=== PATIENT | female | born 1970 | race Two or more races ===

== ENCOUNTER 2019-10-01 16:04 | Emergency (ER) | payer OTHER ==
[2019-10-01 16:37] VITALS: BMI 28.8
--- NOTE | 2019-10-01 17:18 | PDOC ---
History of Present Illness - General Chief Complaint: Pain Stated Complaint: ABD PAIN X 7 DAYS History Source: Patient, Family - History of Present Illness Initial Comments: 10/01/19 17:02 Patient is a 49 year old female with no pmhx c/o epigastric pain x 2 year. States she was seen in the ED 1 year ago for this same symptoms but then went back to [place]. She is now returning with symptoms of epigastric burning pain 8 /10, worse with eating or drinking, so has not been eating or drinking x 1 month. For the past 3 days she has been having dizziness - spinning, hand getting numb, weakness and last 2 days has been having diarrhea. Saw Dr. Oviedo for the same symptoms, blood work was done which showed low Vit D, B12, iron and referred her to GI Dr. Corbett who she will 10/04/19. She is planning to go back to [place] soon. PMD: Dr. Oviedo PMHX: As above PSOCHX: Visiting with her daughters ALL: NKDA GENERAL/CONSTITUTIONAL: [No fever or chills. No weakness. No weight change.] HEAD, EYES, EARS, NOSE AND THROAT: [No change in vision. No ear pain or discharge. No sore throat.] CARDIOVASCULAR: [No chest pain or shortness of breath.] RESPIRATORY: [No cough, wheezing, or hemoptysis.] GASTROINTESTINAL: [(+)nausea, vomiting, diarrhea (-)constipation. No rectal bleeding.] GENITOURINARY: [No dysuria, frequency, or change in urination.] MUSCULOSKELETAL: [No joint or muscle swelling or pain. No neck or back pain.] SKIN AND BREASTS: [No rash or easy bruising.] NEUROLOGIC: [No headache, vertigo, loss of consciousness, or loss of sensation.] PSYCHIATRIC: [No depression or anxiety.] ENDOCRINE: [No increased thirst. No abnormal weight change.] HEMATOLOGIC/LYMPHATIC: [No anemia, easy bleeding, or history of blood clots.] ALLERGIC/IMMUNOLOGIC: [No hives or skin allergy. No latex allergy.] GENERAL: [The patient is awake, alert, and fully oriented, in no acute distress. ] HEAD: [Normal with no signs of trauma.] EYES: [Pupils equal, round and reactive to light, extraocular movements intact, sclera anicteric, conjunctiva clear.] ENT: [Ears normal, nares patent, oropharynx clear without exudates. Moist mucous membranes.] NECK: [Normal range of motion, supple without lymphadenopathy, JVD, or masses.] LUNGS: [Breath sounds equal, clear to auscultation bilaterally. No wheezes, and no crackles.] HEART: [Regular rate and rhythm, normal S1 and S2 without murmur, rub.] ABDOMEN: [Soft, (+)tenderness epigastrium, normoactive bowel sounds. No guarding, no rebound. No masses.] EXTREMITIES: [Normal range of motion, no edema. No clubbing or cyanosis. No cords, erythema, or tenderness.] NEUROLOGICAL: [Cranial nerves II through XII grossly intact. Normal speech, normal gait.] PSYCH: [Normal mood, normal affect.] SKIN: [Warm, Dry, normal turgor, no rashes or lesions noted.] Past History - Past Medical History Allergies/Adverse Reactions: Allergies Allergy/AdvReac Type Severity Reaction Status Date / Time No Known Allergies Allergy Verified 10/01/19 16:35 Home Medications: Ambulatory Orders metFORMIN HCL [Metformin HCl] 500 mg PO BID #60 tablet 11/19/15 Glycerin [Suppository] 1 each RC Q3D PRN #10 supp.rect 12/14/15 Na Phos,M-B/Na Phos,Di-Ba [Fleet Enema] 133 ml RC ONCE #1 enema 12/14/15 Polyethylene Glycol 3350 [Miralax 255 gm Btl -] 17 gm PO DAILY #1 bottle Cephalexin [Keflex] 500 mg PO BID #10 capsule 10/01/19 Sucralfate Oral Suspension [Carafate *Oral Susp*] 1 gm PO QID 10 Days #400 ml COPD: No Diabetes: Yes - Psycho Social/Smoking Cessation Hx Smoking History: Never smoked Have you smoked in the past 12 months: No Number of Cigarettes Smoked Daily: 0 Information on smoking cessation initiated: No Hx Alcohol Use: No Drug/Substance Use Hx: No Substance Use Type: None *Physical Exam - Vital Signs Last Vital Signs Temp Pulse Resp BP Pulse Ox 98.3 F 73 18 123/72 99 10/01/19 16:35 10/01/19 16:35 10/01/19 16:35 10/01/19 16:35 10/01/19 16:35 ED Treatment Course - LABORATORY CBC & Chemistry Diagram: 10/01/19 17:49 10/01/19 17:49 Medical Decision Making - Medical Decision Making 10/01/19 17:02 Patient is a 49 year old female with no pmhx c/o epigastric pain x 2 year. States she was seen in the ED 1 year ago for this same symptoms but then went back to [place]. She is now returning with symptoms of epigastric burning pain 8 /10, worse with eating or drinking, so has not been eating or drinking x 1 month. For the past 3 days she has been having dizziness - spinning, hand getting numb, weakness and last 2 days has been having diarrhea. Saw Dr. Oviedo for the same symptoms, blood work was done which showed low Vit D, B12, iron and referred her to GI Dr. Corbett who she will 10/04/19. She is planning to go back to [place] soon. Symptoms consistent with gastritis with acute symptoms of dizziness - vertigo, n /v/d most likely dehydration. labs, ekg IVF reassess Laboratory Tests 10/01/19 17:40 Urine Color [place] Urine Appearance Cloudy Urine pH 5.5 Ur Specific [place] 1.015 Urine Protein Trace Urine Glucose (UA) Negative Urine Ketones 1+ H Urine Blood 3+ H Urine Nitrite Negative Urine Bilirubin Negative Urine Urobilinogen 0.2 Ur Leukocyte Esterase 1+ H Urine WBC (Auto) 15 Urine RBC (Auto) 409 Urine Casts (Auto) 10 U Epithel Cells (Auto) 5.5 Urine Bacteria (Auto) 389.4 EKG: SR at rate 61, normal axis deviation, T wave inversion V1 and V2 Labs reviewed noted no acute findings except for UA which shows mild dehydration and WBCs. Suspect patient might have a UTI so we will treat with Keflex, and send urine cultures off. patient is currently menstruation I discussed the physical exam findings, ancillary test results and final diagnoses with the patient. I answered all of the patient's questions. The patient was satisfied with the care received and felt comfortable with the discharge plan and treatment plan. The Patient agrees to follow up with the primary care physician within 24-72 hours. Discharge - Discharge Information Problems reviewed: Yes Clinical Impression/Diagnosis: Epigastric pain Gastritis Qualifiers: Gastritis type: unspecified gastritis Chronicity: unspecified Gastritis bleeding: without bleeding Qualified Code(s): K29.70 - Gastritis, unspecified, without bleeding UTI (urinary tract infection) Qualifiers: Urinary tract infection type: site unspecified Hematuria presence: without hematuria Qualified Code(s): N39.0 - Urinary tract infection, site not specified Condition: Improved Disposition: HOME - Additional Discharge Information Prescriptions: Cephalexin [Keflex] 500 mg PO BID #10 capsule Sucralfate Oral Suspension [Carafate *Oral Susp*] 1 gm PO QID 10 Days #400 ml - Follow up/Referral Referrals: Nate Oviedo MD [Primary Care Provider] - - Patient Discharge Instructions Additional Instructions: Your Discharge Instructions: You must call primary care physician within 24 hours to arrange follow-up. Return to the Emergency Department with any new, persistent or worsening symptoms, for fever, chills, SOB, dizziness or any other concerning changes that may occur. Keep your appointment with Dr. Corbett. - Post Discharge Activity
[2019-10-01] MEDS ORDERED: PANTOPRAZOLE SODIUM 40 MG VIAL IVPUSH ONE (17:21)
[2019-10-01] MEDS ORDERED: SODIUM CHLORIDE 0.9% 500 ML INFUS.BAG IV ONE (17:21)
[2019-10-01] MEDS ORDERED: PANTOPRAZOLE SODIUM 40 MG VIAL ONE (17:54)
[2019-10-01 17:56] LABS: BASO % 0.3 % (0-2.0); EOS % 0.6 % (0-4.5); HEMATOCRIT 39.8 % (32.4-45.2); HEMOGLOBIN 13.5 GM/dL (10.7-15.3); LYMPH % 38.5 % (8-40); MCH 30.7 pg (25.7-33.7); MCHC 33.8 g/dl (32.0-36.0); MEAN CELL VOLUME 90.8 fl (80-96); MEAN PLT VOLUME 7.8 fl (7.5-11.1); NEUT % 52.6 % (42.8-82.8); PLATELET COUNT 315 K/MM3 (134-434); RBC 4.39 M/mm3 (3.60-5.2); RDW 14.3 % (11.6-15.6); WHITE BLOOD COUNT 4.8 K/mm3 (4.0-10.0)
[2019-10-01] MEDS ORDERED: MAG HYDROX/AL HYDROX/SIMETH 30 ML UNIT-DOSE CUP PO ONE (18:00)
[2019-10-01] MEDS ORDERED: SUCRALFATE 1 GM/10 ML UNIT DOSE CUPS PO ONE (18:01)
[2019-10-01] MEDS ORDERED: SUCRALFATE 1 GM TABLET (FP) ONE (18:08)
[2019-10-01] MEDS ORDERED: MAG HYDROX/AL HYDROX/SIMETH 30 ML UNIT-DOSE CUP ONE (18:08)
[2019-10-01] MEDS ORDERED: SUCRALFATE 1 GM TABLET (FP) PO ONE (18:13)
[2019-10-01 18:31] LABS: ALBUMIN 3.7 g/dl (3.4-5.0); ALK PHOS 53 U/L (45-117); ANION GAP 7 MMOL/L (8-16); BILIRUBIN,TOTAL 0.4 mg/dL (0.2-1); CALCIUM 8.9 mg/dL (8.5-10.1); CHLORIDE 105 mmol/L (98-107); CO2 29 mmol/L (21-32); CREATININE 0.6 mg/dL (0.55-1.3); GLUCOSE,RANDOM 85 mg/dL (74-106); POTASSIUM 4.2 mmol/L (3.5-5.1); SGOT/AST 8 U/L (15-37); SGPT/ALT 17 U/L (13-61); SODIUM 141 mmol/L (136-145); TOT PROT 6.8 g/dl (6.4-8.2)
[2019-10-01 18:46] LABS: EPI CELLS 5.5 /HPF (0-5/HPF); HYALINE CASTS 10 /lpf (0-8); PH,URINE 5.5 (5.0-8.0); URINE APPEARANCE CLOUDY; URINE BACTERIA 389.4 /hpf (NEGATIVE); URINE BILIRUBIN NEGATIVE (NEGATIVE); URINE COLOR ORANGE; URINE GLUCOSE (UA) NEGATIVE (NEGATIVE); URINE KETONE 1+ (NEGATIVE); URINE LEUK ESTERASE 1+ (NEGATIVE); URINE NITRITE NEGATIVE (NEGATIVE); URINE PROTEIN TRACE (NEGATIVE); URINE RBC 409 /hpf (0-4); URINE UROBILINOGEN 0.2 mg/dL (0.2-1.0); URINE WBC 15 /hpf (0-5)
[2019-10-01] MEDS ORDERED: CEPHALEXIN MONOHYDRATE 500 MG CAPSULE (UD) PO ONE (19:03)
[2019-10-01] MEDS ORDERED: CEPHALEXIN MONOHYDRATE 500 MG CAPSULE (UD) ONE (19:31)
[2019-10-01 19:51] VITALS: BP 110/74; PULSE 69; TEMP 97.8
--- NOTE | 2019-10-02 18:36 | EKG ---
Test Reason : Blood Pressure : / mmHG Vent. Rate : 061 BPM Atrial Rate : 061 BPM P-R Int : 132 ms QRS Dur : 088 ms QT Int : 436 ms P-R-T Axes : 017 013 021 degrees QTc Int : 438 ms NORMAL SINUS RHYTHM NORMAL ECG NO PREVIOUS ECGS AVAILABLE Confirmed by RALPH VALENTINE MD ([id number]) on 10/02/2019 6:35:44 PM Referred By: Confirmed By:RALPH VALENTINE MD
== END 2019-10-01 19:50 | disposition home or self-care (01) ==
LOC: JER 16:04
PROC: 3E033GC Introduction of Other Therapeutic Substance into Peripheral Vein, Percutaneous Approach (ICD-10-PCS; principal; 2019-10-01)
DX: K29.70 Gastritis, unspecified, without bleeding (principal); N39.0 Urinary tract infection, site not specified; E11.9 Type 2 diabetes mellitus without complications; Z79.84 Long term (current) use of oral hypoglycemic drugs
CPT/HCPCS: 36415; 80053; 81003; 82550; 84484; 85025; 87086; 93005; 93010; 99283-25

== ENCOUNTER 2020-08-24 15:43 | Emergency (ER) | payer OTHER ==
[2020-08-24 16:04] VITALS: TEMP 97.8; BMI 31.8
[2020-08-24] MEDS ORDERED: FAMOTIDINE 20 MG/50 ML IVPB 20 MG/50 ML MG IVPB ONE ×2 (17:24→18:27)
[2020-08-24] MEDS ORDERED: MAG HYDROX/AL HYDROX/SIMETH -MYLANTA- ORAL SUSPENSION PO ONE (17:25)
[2020-08-24 17:46] LABS: BASO % 0.3 % (0-2.0); HEMATOCRIT 37.7 % (32.4-45.2); HEMOGLOBIN 12.6 GM/dL (10.7-15.3); LYMPH % 39.9 % (8-40); MCH 29.7 pg (25.7-33.7); MCHC 33.3 g/dl (32.0-36.0); MEAN CELL VOLUME 89.2 fl (80-96); MEAN PLT VOLUME 7.7 fl (7.5-11.1); NEUT % 51.8 % (42.8-82.8); PLATELET COUNT 272 K/MM3 (134-434); RBC 4.23 M/mm3 (3.60-5.2); RDW 15.9 % (11.6-15.6); WHITE BLOOD COUNT 6.2 K/mm3 (4.0-10.0)
[2020-08-24 18:08] LABS: CHLORIDE 104 mmol/L (98-107); POTASSIUM 4.4 mmol/L (3.5-5.1); SODIUM 137 mmol/L (136-145)
[2020-08-24 18:10] LABS: ANION GAP 6 MMOL/L (8-16); CALCIUM 8.9 mg/dL (8.5-10.1); CO2 27 mmol/L (21-32); GLUCOSE,RANDOM 92 mg/dL (74-106); LIPASE 141 U/L (73-393)
[2020-08-24 18:13] LABS: CREATININE 0.7 mg/dL (0.55-1.3); SGOT/AST 5 U/L (15-37); SGPT/ALT 21 U/L (13-61)
[2020-08-24 18:15] LABS: TOT PROT 7.6 g/dl (6.4-8.2)
[2020-08-24 18:16] LABS: ALK PHOS 69 U/L (45-117)
[2020-08-24 18:19] LABS: BILIRUBIN,TOTAL 0.3 mg/dL (0.2-1)
[2020-08-24] MEDS ORDERED: MAG HYDROX/AL HYDROX/SIMETH 30 ML UNIT-DOSE CUP ONE (18:27)
[2020-08-24 19:42] VITALS: BP 121/74; PULSE 73
[2020-08-24] MEDS ORDERED: PANTOPRAZOLE SODIUM 40 MG VIAL IVPUSH ONE (19:48)
[2020-08-24] MEDS ORDERED: PANTOPRAZOLE SODIUM 40 MG/100 ML BAG IVPB ONE (19:54)
== END 2020-08-24 20:25 | disposition home or self-care (01) ==
LOC: JER 15:43
PROC: 3E033NZ Introduction of Analgesics, Hypnotics, Sedatives into Peripheral Vein, Percutaneous Approach (ICD-10-PCS; principal; 2020-08-24)
PROC: 3E033GC Introduction of Other Therapeutic Substance into Peripheral Vein, Percutaneous Approach (ICD-10-PCS; 2020-08-24)
DX: R10.13 Epigastric pain (principal)
CPT/HCPCS: 36415; 80053; 83690; 84484; 85025; 93005; 93010; 99285-25